=== PATIENT | female | born 1970 | race Caucasian/White ===

== ENCOUNTER → 2017-08-14 | Outpatient (CLI) | payer BC ==
[~2017-08-14] MED LIST: ASPI-390 PO; ATV1 PO; ATV5X PO; CALC600T9 PO; CLR10 PO; HYDR-4852 PO; LEVO100T7 PO; LEVO112T4 PO; PHEN95TA14 PO; RXC5 PO; TOPI100T20 PO
[2017-08-14 18:56] LABS: THYROID STIMULATING HORMONE 0.799 uIu/ml (0.300-4.500)
== END | disposition home or self-care (01) ==
LOC: C.LABMFLN 12:46
PROVIDERS: ATTEND Family Medicine
DX: E03.9 Hypothyroidism, unspecified (principal)

== ENCOUNTER → 2017-09-12 | Outpatient (CLI) | payer BC ==
--- NOTE | 2017-09-12 11:39 | DIAGNOSTIC IMAGING REPORT ---
MRI OF THE LUMBAR SPINE WITHOUT CONTRAST CLINICAL HISTORY: Lumbar radiculopathy. Persistent low back and bilateral hip pain. COMPARISON STUDY: Lumbar spine fluoroscopic images June 23, 2015. TECHNIQUE: Utilizing a 1.5 Florina magnet and dedicated coil, multiplanar, multiecho imaging of the lumbar spine was performed without IV contrast. FINDINGS: For purposes of numbering on this exam, the L5-S1 disc space is assigned to axial image 27 of 30. There are postoperative findings consistent with L4-L5 and L5-S1 discectomies with interbody spacer placement. There is a posterior decompression from L4 through S1. There are bilateral pedicle screws at the L3, L4, L5 and S1 levels. There is no intracanalicular mass or fluid collection. Signal abnormality within the operative bed is within normal limits given surgery. Conus terminates at the upper L2 level. Paravertebral soft tissues are unremarkable. L1-2: The central canal and neural foramen are patent. L2-3: There is mild disc space narrowing with disc bulge. There is mild narrowing of the central canal, lateral recesses and neural foramen. L3-4: There is minimal anterolisthesis. There is mild ligamentous hypertrophy. Central canal, lateral recesses and neural foramen are patent. L4-5: There is no residual central canal stenosis status post laminectomy. Evaluation at this level is compromised by susceptibility artifact from the hardware. There is mild narrowing of the left neural foramen and mild to moderate narrowing of the right neural foramen. L5-S1: There is no residual central canal stenosis. Neural foramen are patent. IMPRESSION: 1. Status post L4-L5 and L5-S1 discectomies with posterior decompression and L3-S1 bilateral pedicle screw fusion. 2. Mild central canal stenosis at L2-L3. Otherwise, patent central canal. 3. Mild to moderate right neural foraminal stenosis at L4-L5. Otherwise, mild multilevel neural foraminal stenosis. Electronically signed by: Son Aguilar M.D. 09/12/2017 11:37 AM Dictated Date/Time: 09/12/2017 11:31 AM
== END | disposition home or self-care (01) ==
LOC: C.MRIBC 10:00
PROVIDERS: ATTEND Pain Medicine Interventional Pain Medicine
DX: M47.816 Spondylosis without myelopathy or radiculopathy, lumbar region (principal)